=== PATIENT | female | born 1995 | race Caucasian/White ===

== ENCOUNTER 2017-01-24 18:25 | Emergency (ER) | payer BC ==
[2017-01-24 18:48] VITALS: BP 117/69
--- NOTE | 2017-01-24 19:11 | XRAY Preliminary Report ---
Exam: XR Finger(s) RT IMPRESSION: Avulsion fracture base of proximal phalanx of right thumb. [facility] SITE ID: [id number]
--- NOTE | 2017-01-24 19:14 | XRAY Report ---
EXAM: RIGHT FIRST DIGIT RADIOGRAPHY EXAM DATE: 01/24/2017 07:00 PM. CLINICAL HISTORY: Injury. COMPARISON: None. TECHNIQUE: 3 views. FINDINGS: Bones: There is a linear, approximately 2-3 mm portion fracture involving the base of the proximal ph alanx of the thumb. Joints: Normal. No subluxations. Soft Tissues: Normal. No soft tissue swelling. IMPRESSION: Avulsion fracture base of proximal phalanx of right thumb. [facility] Referring Provider Line: [phone] SITE ID: [id number]
--- NOTE | 2017-01-24 19:30 | ED Physician Documentation ---
PD HPI UPPER EXT INJURY - Stated complaint Stated Complaint: THUMB PX - Chief complaint Chief Complaint: Ext Problem - History obtained from History obtained from: Patient - History of Present Illness Location: Right (Right handed, fell yesterday and axial load to R thumb. No other inj. C/O pain at the base of the thumb with swelling.) Review of Systems Constitutional: reports: Reviewed and negative Nose: reports: Reviewed and negative Throat: reports: Reviewed and negative PD PAST MEDICAL HISTORY - Past Surgical History Past Surgical History: No - Present Medications Home Medications: Ambulatory Orders Medication Instructions Recorded Confirmed No Known Home Medications [No 01/24/17 01/24/17 Known Home Medications] - Allergies Allergies/Adverse Reactions: Allergies Allergy/AdvReac Type Severity Reaction Status Date / Time No Known Drug Allergies Allergy Verified 01/24/17 18:48 - Social History Does the pt smoke?: No Smoking Status: Never smoker Does the pt drink ETOH?: No Does the pt have substance abuse?: No - Immunizations Immunizations are current?: Yes PD ED PE NORMAL - Vitals Vital signs reviewed: Yes - General General: Alert and oriented X 3, No acute distress - Extremities Extremities: Other (TTP at MCP thumb with swelling, but good ROM.) - Neuro Neuro: Alert and oriented X 3, Normal speech - Psych Psych: Normal mood, Normal affect Results - Vitals Vitals: Vital Signs - 24 hr 01/24/17 18:44 Temperature 36.8 C Heart Rate 76 Respiratory 18 Rate Blood Pressure 117/69 O2 Saturation 100 Oxygen O2 Source Room air - Rads (name of study) R hand Radiology: EMP read contemporaneously (avulsion frx at prox end of prox phalanx of R thumb.) Procedures - Splint (location) R hand/thumb Splint applied by: Tech Type of splint: Fiberglass, Short arm, Thumb spica Other: Patient tolerated well, No complications, Neurovascular intact Departure - Departure Disposition: 01 Home, Self Care Clinical Impression: Fracture of thumb Qualifiers: Encounter type: initial encounter Fracture type: closed Phalanx: proximal Fracture alignment: nondisplaced Laterality: right Qualified Code(s): S62.514A - Nondisplaced fracture of proximal phalanx of right thumb, initial encounter for closed fracture Condition: Good Record reviewed to determine appropriate education?: Yes Instructions: ED Fx Hand Closed, ED Splint Care Fiberglass Follow-Up: [facility] [Provider Group] - Within 1 week Comments: Tylenol as needed for pain, call orthopedics tomorrow for followup, keep splint on and dry.
== END 2017-01-24 19:43 | disposition home or self-care (01) ==
LOC: ED 18:25
DX: S62.511A Displaced fracture of proximal phalanx of right thumb, initial encounter for closed fracture (principal); W01.0XXA Fall on same level from slipping, tripping and stumbling without subsequent striking against object, initial encounter
CPT/HCPCS: 29125; 73140; 99283